=== PATIENT | male | born 1955 | race Caucasian/White ===

== ENCOUNTER → 2016-12-11 | Outpatient (CLI) | payer OTHER ==
--- NOTE | 2016-12-11 09:57 | DIAGNOSTIC IMAGING REPORT ---
LEFT ELBOW MIN 3 VIEWS CLINICAL HISTORY: LEFT ELBOW PAIN COMPARISON: None. DISCUSSION: The fat pads are not displaced. No acute fractures or dislocations are visualized. There is an olecranon spur. There are soft tissue calcifications posterior to the elbow. These could relate to the triceps. IMPRESSION: 1. No acute fractures 2. Posterior soft tissue calcifications. These are nonspecific but could relate to the triceps. Electronically signed by: Aaron Diaz M.D. 12/11/2016 9:55 AM Dictated Date/Time: 12/11/2016 9:54 AM
== END | disposition home or self-care (01) ==
LOC: C.RDSM 09:41
PROVIDERS: ATTEND Internal Medicine
DX: M25.522 Pain in left elbow (principal); M79.9 Soft tissue disorder, unspecified